=== PATIENT | male | born 1965 | race African-American/Black ===

== ENCOUNTER 2019-07-19 07:19 | Emergency (ER) | payer OTHER ==
[2019-07-19] MEDS ORDERED: Sodium Chloride 0.9% 10 ML Syringe FLUSH PRN (07:27)
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
[2019-07-19] MEDS ORDERED: Diphtheria,Pertussis(Acell),Tetanus Vaccine 0.5 ML Syringe IM ONE (08:18)
--- NOTE | 2019-07-19 08:36 | CT ---
Head CT Technique: Multiple axial sections through the brain were obtained. Intravenous contrast was not utilized. Comparison: No prior intracranial imaging is available. Findings: Small parenchymal hemorrhages are seen overlying both convexities. There is subarachnoid blood within the parietal sulci over the convexity on the right side. Subarachnoid blood is also seen within the right sylvian fissure. No subdural hematoma or epidural hematoma is seen at this time. No intraventricular blood is seen. No additional parenchymal abnormality is noted. Diffuse soft tissue swelling seen within the left side of the scalp. Bone window settings were reviewed which show no acute calvarial abnormality. Visualized paranasal sinuses are clear. Impression: 1. Small areas of subarachnoid blood as well as small parenchymal hemorrhages overlying the convexities. 2. Soft tissue swelling within the left scalp. 3. No additional abnormality is appreciated. Diagnostic code #5
--- NOTE | 2019-07-19 08:36 | CT ---
CT cervical spine Technique: Multiple axial sections were obtained from above C1 inferiorly to the mid T2 level. Reconstructed coronal and sagittal images were reviewed. Comparison: No prior cervical spine imaging. Findings: Vertebral body heights and disc spaces are fairly well preserved. Vertebral bodies and posterior arches are intact. No fracture is seen. No bony central or bony neural foraminal stenosis is seen. No abnormal subluxation is seen. Impression: 1. Nothing acute is appreciated on CT study of the cervical spine. Diagnostic code #1
--- NOTE | 2019-07-20 08:01 | CR ---
Chest: Supine view of the chest was obtained. Comparison: No prior chest x-ray. Slight atelectasis within the left base is seen. Lungs otherwise are clear. Heart size and mediastinum are within normal limits for supine technique. No discrete bony abnormality is identified. Impression: 1. Mild left basilar atelectasis. 2. Supine chest x-ray is otherwise unremarkable. Diagnostic code #2
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
== END 2019-07-19 08:50 ==
LOC: JD.ED 07:19
DX: S06.369A Traumatic hemorrhage of cerebrum, unspecified, with loss of consciousness of unspecified duration, initial encounter (principal); S93.402A Sprain of unspecified ligament of left ankle, initial encounter; S80.02XA Contusion of left knee, initial encounter; Z23 Encounter for immunization; V68.5XXA Driver of heavy transport vehicle injured in noncollision transport accident in traffic accident, initial encounter; Y92.410 Unspecified street and highway as the place of occurrence of the external cause
CPT/HCPCS: 36415; 70450; 70450-26; 71045; 71045-26; 72125; 72125-26; 73564-26-LT; 73564-LT; 73610-26-LT; 73610-LT; 80053; 80306; 83690; 85007; 85027; 90471; 90700; 99284; 99285-25; G0480